=== PATIENT | male | born 1965 | race Caucasian/White ===

== ENCOUNTER 2016-10-11 17:38 | Emergency (ER) | payer MEDICARE ==
--- NOTE | 2016-10-11 18:14 | ER Document Report ---
ED Medical Screen (RME) - General Stated Complaint: RIGHT SIDE RIB PAIN Time seen by provider: 18:12 Mode of Arrival: Ambulatory Information source: Patient Notes: 51-year-old male presents to ED for right rib pain. He states he has not coughed excessively, falling, or been injured, he is having right rib pain. States his cough and deep breathing or moving all hurt this area. Denies any abdominal pain. Denies any nausea vomiting or pain with urination. Denies any history of asthma or COPD, states he smokes 5 or 6 cigarettes a day. I have greeted and performed a rapid initial assessment of this patient. A comprehensive ED assessment and evaluation of the patient, analysis of test results and completion of medical decision making process will be conducted by an additional ED providers. TRAVEL OUTSIDE OF THE [place] IN LAST 30 DAYS: No - Related Data Allergies/Adverse Reactions: No Known Allergies Allergy (Verified 10/11/16 18:11) Past Medical History Musculoskeltal Medical History: Reports Hx Musculoskeletal Deformity, Reports Hx Musculoskeletal Trauma Skin Medical History: Reports Hx Cellulitis Traumatic Medical History: Reports: Hx Fractures Past Surgical History: Reports: Hx Orthopedic Surgery - Right leg - Immunizations Hx Diphtheria, Pertussis, Tetanus Vaccination: Yes
[2016-10-11] MEDS ORDERED: LIDOCAINE 5% (700 MG) TRANSDERMAL ADH..PATCH TP ONE (21:10)
[2016-10-11] MEDS ORDERED: IBUPROFEN 600 MG TABLET PO ONE (21:10)
--- NOTE | 2016-10-11 21:12 | ER Document Report ---
ED General - General Chief Complaint: Rib Pain Stated Complaint: RIGHT SIDE RIB PAIN Mode of Arrival: Ambulatory Notes: Patient is a 51-year-old male without past medical history who presents with 2 days of right lower rib pain. Does describe the pain as a dull, aching pain that is worsened by movement or direct palpation of the area. He also notes that coughing worsens the pain. Denies any pleuritic pain. He has not tried anything to improve the pain. Denies any history of trauma to the area although he notes he has had a persistent cough for the last several days. No history of DVT or pulmonary embolus. He denies any shortness of breath, hemoptysis, weakness or numbness. He has not seen his primary care doctor regarding today's concerns. Denies any fever. TRAVEL OUTSIDE OF THE [place] IN LAST 30 DAYS: No - Related Data Allergies/Adverse Reactions: No Known Allergies Allergy (Verified 10/11/16 18:11) Past Medical History - General Information source: Patient - Social History Smoking Status: Current Every Day Smoker Chew tobacco use (# tins/day): Yes Frequency of alcohol use: None Lives with: Family Family History: CAD, CVA, DM, Hyperlipidemia, Hypertension, Malignancy Patient has suicidal ideation: No Patient has homicidal ideation: No Renal/ Medical History: Denies: Hx Peritoneal Dialysis Musculoskeltal Medical History: Reports Hx Musculoskeletal Deformity, Reports Hx Musculoskeletal Trauma Skin Medical History: Reports Hx Cellulitis Traumatic Medical History: Reports: Hx Fractures Past Surgical History: Reports: Hx Orthopedic Surgery - Right leg - Immunizations Hx Diphtheria, Pertussis, Tetanus Vaccination: Yes Review of Systems - Review of Systems Notes: Constitutional: Negative for fever. HENT: Negative for sore throat. Eyes: Negative for visual changes. Cardiovascular: Negative for chest pain. Respiratory: Negative for shortness of breath. Gastrointestinal: Negative for abdominal pain, vomiting or diarrhea. Genitourinary: Negative for dysuria. Musculoskeletal: Positive for right rib pain Skin: Negative for rash. Neurological: Negative for headaches, weakness or numbness. 10 point ROS negative except as marked above and in HPI. Physical Exam - Vital signs Vitals: Temp Pulse Resp BP Pulse Ox 98.0 F 92 18 124/74 97 10/11/16 17:51 10/11/16 17:51 10/11/16 17:51 10/11/16 17:51 10/11/16 17:51 Interpretation: Normal Notes: PHYSICAL EXAMINATION: GENERAL: Well-appearing, well-nourished and in no acute distress. HEAD: Atraumatic, normocephalic. EYES: Pupils equal round and reactive to light, extraocular movements intact, sclera anicteric, conjunctiva are normal. ENT: nares patent, oropharynx clear without exudates. Moist mucous membranes. NECK: Normal range of motion, supple without lymphadenopathy LUNGS: Breath sounds clear to auscultation bilaterally and equal. No wheezes rales or rhonchi. HEART: Regular rate and rhythm without murmurs ABDOMEN: Soft, nontender, normoactive bowel sounds. No guarding, no rebound. No masses appreciated. Chest wall: reproducible pain on palpation the right lower ribs EXTREMITIES: Normal range of motion, no pitting or edema. No cyanosis. NEUROLOGICAL: No focal neurological deficits. Moves all extremities spontaneously and on command. PSYCH: Normal mood, normal affect. SKIN: Warm, Dry, normal turgor, no rashes or lesions noted. Course - Re-evaluation Re-evalutation: 10/11/16 21:10 Patient presents with right-sided rib pain worsened by movement and with direct palpation of the area. He has had extensive coughing recently and I suspect likely costochondritis in the setting of his exam which shows very reproducible pain with both movement and palpation of the area. He has no dyspnea, tachycardia, hemoptysis, or hypoxemia to suggest an acute pulmonary embolus. His Wells score is 0 and I do not believe pursuing further evaluation for pulmonary embolus at this point is indicated given his clinical history, vitals and exam. Chest x-ray clear without evidence of rib fractures an acute pneumothorax. Clinical history again is not consistent with a cardiac etiology and I do not believe pursuing workup for this at this time is appropriate. Patient was started on anti-inflammatories and lidocaine. At this time will discharge with return precautions and follow-up recommendations. Verbal discharge instructions given a the bedside and opportunity for questions given. Medication warnings reviewed. Patient is in agreement with this plan and has verbalized understanding of return precautions and the need for primary care follow-up in the next 24-72 hours. - Vital Signs Vital signs: Temp Pulse Resp BP Pulse Ox 98.1 F 74 14 127/82 H 97 10/11/16 21:25 10/11/16 21:25 10/11/16 21:25 10/11/16 21:25 10/11/16 21:25 - Diagnostic Test Radiology reviewed: Image reviewed, Reports reviewed Radiology results interpreted by me: 10/12/16 04:26 Chest x-ray: No acute fracture or dislocation Discharge - Discharge Clinical Impression: Rib pain on right side Condition: Good Disposition: HOME, SELF-CARE Additional Instructions: Your chest wall pain is due to inflammation of your chest wall muscles. This pain can last for up to 6 weeks. It is very important that you continue to take purposeful deep breaths. For your pain: Continue to take ibuprofen 600 mg every 6 hours or Tylenol 1000 mg every 6 hours. Apply local lidocaine to the area per bottle instructions. There is a product sold [id number] called "Aspercreme with lidocaine" that you can use for this purpose. Please follow- up with her primary care doctor in the next 2-3 days. Return to the emergency department immediately if you develop worsening shortness of breath, increased pain, begin coughing blood, pass out, or have any other symptoms that are worrisome to you.
[2016-10-11 21:28] VITALS: BP 127/82
== END 2016-10-11 21:29 | disposition home or self-care (01) ==
LOC: ER 17:38
DX: R07.81 Pleurodynia (principal); F17.200 Nicotine dependence, unspecified, uncomplicated
CPT/HCPCS: 99283; 71020; A9270